=== PATIENT | female | born 1990 | race African-American/Black ===

== ENCOUNTER 2021-07-02 18:43 | Emergency (ER) | payer BC ==
[~2021-07-02] VITALS: Ht 162.6 cm; Wt 54.4 kg
[2021-07-02 19:09] VITALS: BP_SYST 130
--- NOTE | 2021-07-02 19:57 | NUR ---
STREP THROAT PERFORMED IN TRIAGE ROOM AND SENT TO LAB
--- NOTE | 2021-07-02 20:00 | NUR ---
Pt brought by self, A&Ox4, pt presents to ER with sore throat x 1 week, skin pink and warm, cap refill <3, VSS, respirations even and unlabored, will cont to monitor.
--- NOTE | 2021-07-02 20:30 | NUR ---
Dr Keen evaluating patient at bedside
--- NOTE | 2021-07-02 22:00 | NUR ---
Dr. Fitch chair side in triage
[2021-07-02 23:01] LABS: BASOPHILS % (AUTO) 0.3 % (0.0-2.0); EOSINOPHILS # (AUTO) 0.1 K/uL (0.0-0.4); EOSINOPHILS % (AUTO) 0.5 % (0.0-4.0); HEMATOCRIT 39.5 % (36-48); HEMOGLOBIN 14.1 g/dL (12.0-16.0); LYMPHOCYTES # (AUTO) 2.8 K/uL (1.0-5.5); LYMPHOCYTES % (AUTO) 26.1 % (20.5-51.5); MEAN CORPUSCULAR HEMOGLOBIN 30 pg (27-31); MEAN CORPUSCULAR HGB CONC 36 % (32-36); MEAN CORPUSCULAR VOLUME 83 fL (79.0-98.0); MONOCYTES # (AUTO) 1.4 K/uL (0.0-1.0); MONOCYTES % (AUTO) 13.2 % (1.7-9.3); NEUTROPHILS # (AUTO) 6.5 K/uL (1.8-7.7); NEUTROPHILS % (AUTO) 59.9 % (40.0-70.0); PLATELET COUNT (AUTO) 228 K/uL (130-430); RED BLOOD CELL COUNT(AUTO) 4.77 MIL/uL (4.2-6.2); RED CELL DISTRIBUTION WIDTH 13.6 % (9.0-15.0); WHITE BLOOD COUNT (AUTO) 10.9 K/uL (4.8-10.8)
[2021-07-02 23:20] LABS: CALCIUM 9.1 mg/dL (8.4-11.0); CREATININE 0.95 mg/dL (0.55-1.30); POTASSIUM 4.2 mmol/L (3.5-5.1)
[2021-07-02 23:25] LABS: ALBUMIN 3.1 g/dL (3.4-4.8); C-REACTIVE PROTEIN QUANT 7.6 mg/dL (0-0.5)
--- NOTE | 2021-07-02 23:40 | NUR ---
Patient resting quietly in triage. NAD
[2021-07-02] MEDS ORDERED: DEXAMETHASONE SOD PHOSPHATE 10 MG/ML VIAL IM ONE (23:45)
[2021-07-02] MEDS ORDERED: KETOROLAC TROMETHAMINE 60 MG/2 ML VIAL IM ONE (23:45)
--- NOTE | 2021-07-03 00:50 | NUR ---
Called into triage for re-assessment. No response from lobby.
--- NOTE | 2021-07-03 00:55 | NUR ---
Called into triage for re-assessment. No response from lobby.
--- NOTE | 2021-07-03 01:00 | NUR ---
Called into triage for re-assessment. No response from lobby.
== END 2021-07-03 01:00 | disposition left against medical advice (07) ==
LOC: SED 18:43
DX: J02.9 Acute pharyngitis, unspecified (principal)
CPT/HCPCS: 36415; 80053; 84702; 85025; 86140; 86308; 86403; 87081; 99283; J1100; J1885; 83605